=== PATIENT | female | born 1990 | race Caucasian/White ===

== ENCOUNTER 2016-08-10 08:20 | Emergency (ER) | payer BC, MEDICAID ==
[2010-08-08 05:17] VITALS: BMI 23.4
[2016-08-10 09:18] LABS: ALBUMIN 3.6 g/dL (3.4-5.0); ALKALINE PHOSPHATASE 57 U/L (46-116); ALT (SGPT) 21 U/L (10-68); BILIRUBIN - TOTAL 0.19 mg/dL (0.2-1.3); CALC OSMOLALITY 275 mosm/kg (275-300); CALCIUM 9.3 mg/dL (8.5-10.1); CARBON DIOXIDE 26.5 mmol/L (21.0-32.0); CHLORIDE - SERUM 102 mmol/L (98-107); CREATININE - SERUM 0.6 mg/dL (0.6-1.3); GLUCOSE 88 mg/dL (74-106); POTASSIUM - SERUM 3.4 mmol/L (3.5-5.1); PROTEIN - SERUM 7.4 g/dL (6.4-8.2); SODIUM 140 mmol/L (136-145); UREA NITROGEN 8 mg/dL (7-18); eGFR NON AFRICAN AMERICAN > 90 mL/min (90-120)
[2016-08-10 09:19] LABS: HCG SERUM POSITIVE (NEGATIVE)
[2016-08-10 09:22] LABS: BASOPHILS 0.2 % (0.0-2.0); EOSINOPHILS 0.5 % (0-7); HEMOGLOBIN 13.6 g/dL (12-16); IMMATURE GRANULOCYTES 0.2 % (0-5); LYMPHOCYTES 22.9 % (15-50); MCH 30.1 pg (26.0-34.0); MCV 88.5 fL (80.0-100.0); MEAN PLATELET VOLUME 10.5 fL (7.4-10.4); NEUTROPHILS 71.2 % (40-80); PLATELET COUNT 231 10x3/uL (130-400); RBC 4.52 10x6/uL (4.00-5.40); RDW 12.6 % (11.5-14.5); WBC 9.3 10x3/uL (4.8-10.8)
[2016-08-10 09:41] LABS: HCG - QUANTITATIVE (MATERNAL) 96181 mIU/mL
[2016-08-10 09:42] LABS: TROPONIN-I < 0.017 ng/mL (0.000-0.060)
== END 2016-08-10 11:30 | disposition home or self-care (01) ==
LOC: D.ER 08:20
PROVIDERS: Emergency Medicine
DX: R06.00 Dyspnea, unspecified (principal); N93.9 Abnormal uterine and vaginal bleeding, unspecified

== ENCOUNTER 2016-09-03 10:21 | Emergency (ER) | payer BC, MEDICAID ==
[2016-09-03 11:30] LABS: BASOPHILS 0.1 % (0-2); EOSINOPHILS 0.4 % (0-7); HEMATOCRIT 38.6 % (36.0-48.0); HEMOGLOBIN 13.2 g/dL (12-16); IMMATURE GRANULOCYTES 0.4 % (0-5); LYMPHOCYTES 22.1 % (15-50); MCH 30.5 pg (26.0-34.0); MCHC 34.2 g/dL (31.0-37.0); MCV 89.1 fL (80.0-100.0); MEAN PLATELET VOLUME 10.9 fL (7.4-10.4); MONOCYTES 4.5 % (2-11); NEUTROPHILS 72.5 % (40-80); PLATELET COUNT 248 10x3/uL (130-400); RBC 4.33 10x6/uL (4.00-5.40); RDW 12.6 % (11.5-14.5); WBC 11.2 10x3/uL (4.8-10.8)
[2016-09-03 11:30] LABS: UDS - AMPHET NEGATIVE QUAL (NEGATIVE); UDS - BARB NEGATIVE QUAL (NEGATIVE); UDS - BENZO NEGATIVE QUAL (NEGATIVE); UDS - COCAINE NEGATIVE QUAL (NEGATIVE); UDS - METH NEGATIVE QUAL (NEGATIVE); UDS - OPIATE NEGATIVE QUAL (NEGATIVE); UDS - PCP NEGATIVE QUAL (NEGATIVE); UDS - THC NEGATIVE QUAL (NEGATIVE)
[2016-09-03 11:32] LABS: APPEARANCE HAZY (CLEAR); BILIRUBIN NEGATIVE (NEGATIVE); COLOR STRAW (YELLOW); GLUCOSE NEGATIVE (NEGATIVE); KETONE NEGATIVE (NEGATIVE); LEUKOCYTE ESTERASE 1+ (NEGATIVE); NITRITE NEGATIVE (NEGATIVE); PROTEIN NEGATIVE (NEGATIVE); UROBILINOGEN NORMAL (NORMAL); WHITE CELLS - URINE 0-5 /hpf (0-5)
[2016-09-03 11:33] LABS: BACTERIA FEW /hpf (NONE SEEN); EPITHELIAL CELLS 0-5 /hpf (0-5); RED CELLS - URINE 0-5 /hpf (0-5)
[2016-09-03 11:34] LABS: AMORPHOUS SEDIMENT <1+ /lpf (NONE SEEN); MUCUS <1+ /lpf (NONE SEEN)
[2016-09-03 11:48] LABS: ALBUMIN 3.5 g/dL (3.4-5.0); ALKALINE PHOSPHATASE 60 U/L (46-116); ALT (SGPT) 22 U/L (10-68); BILIRUBIN - TOTAL 0.43 mg/dL (0.2-1.3); CALC OSMOLALITY 268 mosm/kg (275-300); CARBON DIOXIDE 26.5 mmol/L (21.0-32.0); CHLORIDE - SERUM 102 mmol/L (98-107); CREATININE - SERUM 0.5 mg/dL (0.6-1.3); GLUCOSE 80 mg/dL (74-106); POTASSIUM - SERUM 4.3 mmol/L (3.5-5.1); PROTEIN - SERUM 7.8 g/dL (6.4-8.2); SODIUM 136 mmol/L (136-145); UREA NITROGEN 7 mg/dL (7-18); eGFR NON AFRICAN AMERICAN > 90 mL/min (90-120)
[2016-09-03 12:09] LABS: HCG - QUANTITATIVE (MATERNAL) 136793 mIU/mL
[2016-09-03 12:10] LABS: TROPONIN-I < 0.017 ng/mL (0.000-0.060)
== END 2016-09-03 14:34 | disposition home or self-care (01) ==
LOC: D.ER 10:21
PROVIDERS: Emergency Medicine; Nurse Practitioner Family
DX: O23.42 Unspecified infection of urinary tract in pregnancy, second trimester (principal); Z3A.17 17 weeks gestation of pregnancy; R55 Syncope and collapse

== ENCOUNTER 2016-10-23 04:46 | Emergency (ER) | payer OTHER, BC, MEDICAID ==
[2010-08-08 05:17] VITALS: BMI 23.4
[2016-10-23] MEDS ORDERED: PRENATAL COMPLE1 TAB PO (06:02)
[2016-10-23] MEDS ORDERED: COLACE100 MG PO (06:03)
[2016-10-23] MEDS ORDERED: TYLENOL W/CODEI1 TAB PO (06:04)
[2016-10-23] MEDS ORDERED: PHENERGAN25 M1 PO (06:06)
== END 2016-10-23 05:22 | disposition home or self-care (01) ==
LOC: D.ER 04:46
DX: S39.012A Strain of muscle, fascia and tendon of lower back, initial encounter (principal); V29.9XXA Motorcycle rider (driver) (passenger) injured in unspecified traffic accident, initial encounter; R10.9 Unspecified abdominal pain

== ENCOUNTER → 2016-10-23 05:45 | Outpatient (CLI) | payer BC, MEDICAID ==
[2010-08-08 05:17] VITALS: BMI 23.4
[~2016-10-23 05:45] MED LIST: COLACE100 MG PO; PHENERGAN25 M1 PO; PRENATAL COMPLE1 TAB PO; TYLENOL W/CODEI1 TAB PO
== END | disposition home or self-care (01) ==
LOC: D.LDO 05:45
DX: Z34.82 Encounter for supervision of other normal pregnancy, second trimester (principal); Z3A.24 24 weeks gestation of pregnancy; V43.52XA Car driver injured in collision with other type car in traffic accident, initial encounter; Y92.410 Unspecified street and highway as the place of occurrence of the external cause

== ENCOUNTER → 2016-12-27 12:48 | Outpatient (CLI) | payer BC, MEDICAID ==
[2010-08-08 05:17] VITALS: BMI 23.4
[2016-12-27 13:20] LABS: APPEARANCE HAZY (CLEAR); BILIRUBIN NEGATIVE (NEGATIVE); COLOR YELLOW (YELLOW); GLUCOSE NEGATIVE (NEGATIVE); KETONE SMALL mg/dL (NEGATIVE); LEUKOCYTE ESTERASE 1+ (NEGATIVE); NITRITE NEGATIVE (NEGATIVE); PH 6.5 (5.0-6.0); PROTEIN NEGATIVE (NEGATIVE); SPECIFIC GRAVITY 1.015 (1.005-1.020); UROBILINOGEN NORMAL (NORMAL)
[2016-12-27 13:27] LABS: BACTERIA MODERATE /hpf (NONE SEEN); RED CELLS - URINE OCC /hpf (0-5)
== END | disposition home or self-care (01) ==
LOC: D.LDO 12:48
PROVIDERS: Obstetrics & Gynecology
DX: Z34.83 Encounter for supervision of other normal pregnancy, third trimester (principal); Z3A.33 33 weeks gestation of pregnancy; M54.9 Dorsalgia, unspecified

== ENCOUNTER → 2017-01-04 11:23 | Outpatient (CLI) | payer BC, MEDICAID ==
[2010-08-08 05:17] VITALS: BMI 23.4
== END | disposition home or self-care (01) ==
LOC: D.US 11:00
DX: N13.30 Unspecified hydronephrosis (principal); M54.9 Dorsalgia, unspecified; R10.9 Unspecified abdominal pain

== ENCOUNTER 2017-02-03 05:07 | Inpatient (IN) | payer BC, MEDICAID ==
[2017-02-03] MEDS ORDERED: PROTONIX40 MG PO (05:29)
[2017-02-03 05:39] VITALS: BP 141/87; BMI 27.7
[2017-02-03 06:50] LABS: HEMATOCRIT 38.7 % (36.0-48.0); MCH 29.7 pg (26.0-34.0); MCHC 33.6 g/dL (31.0-37.0); MCV 88.4 fL (80.0-100.0); MEAN PLATELET VOLUME 11.7 fL (7.4-10.4); RBC 4.38 10x6/uL (4.00-5.40); RDW 13.8 % (11.5-14.5); WBC 8.7 10x3/uL (4.8-10.8)
[2017-02-03 20:10] VITALS: BP 127/66
--- NOTE | 2017-02-03 21:00 | NUR ---
ROUNDS MADE. PT LYING AWAKE IN BED W/INFANT UP IN ARMS. PAIN AND NEEDS ASSESSED. PT DENIES NEEDS AT PRESENT. REPORTS PAIN "IS FINE".
--- NOTE | 2017-02-03 22:00 | NUR ---
ROUNDS MADE. PT CURRENTLY HOLDING INFANT. REPORTS SHE CHANGED A DIAPER AND IS GOING TO ATTEMPT TO NURSE SINCE HE IS AWAKE AT THIS TIME. NO NEEDS VOICED. PT REQUEST BOTH MOTRIN AND NORCO WHEN SHE MAY HAVE IT AGAIN.
--- NOTE | 2017-02-03 22:30 | NUR ---
THIS RN TO BEDSIDE W/MOTRIN 600MG AND NORCO 5/325MG ONE TAB PER PT REQUEST. PAIN ASSESSED. PT REPORTS PAIN 5/10. DESCRIBES IT ABD AND LOWER BACK CRAMPING. FRESH ICE WATER SERVED IN [facility]. Eugene ANDINORN TO PT'S ROOM AT THIS TIME TO ASSIST PT W/GETTING LATCHED AND NURSING.
--- NOTE | 2017-02-03 23:15 | NUR ---
THIS RN TO BEDSIDE FOR PAIN REASSESSMENT. PT REPORTS PAIN IS 2/10 NOW. NO FURTHER PAIN INTERVENTIONS REQUESTED. PT CURRENTLY NURSING . NO FURTHER NEEDS VOICED AT THIS TIME.
--- NOTE | 2017-02-04 | NUR ---
ROUNDS MADE. PT LYING IN BED AWAKE W/LIGHTS TURNED DOWN. PAIN AND NEEDS ASSESSED. PT DENIES PAIN OR NEEDS. INFANT IN CRIB AT BEDSIDE. AWAKE. NO RESP DISTRESS NOTED.
--- NOTE | 2017-02-04 01:12 | NUR ---
REC'D PT AA&O X 4 LYING IN BED W/INFANT UP IN ARMS. PAIN AND NEEDS ASSESSED. PT CURRENTLY DENIES NEEDS. REPORTS PAIN IS BETTER SINCE PAIN MED WAS GIVEN BY AM SHIFT. INFANT PASSED TO FOB SO SHIFT ASSESSMENT MAY BE COMPLETED. BREATH SOUNDS CL/=, ABD SOFT, NON DISTENDED. FUNDUS FIRM,U/U W/SLIGHT SHIFT TO RT. PT REPORTS SHE DOES FEEL THE URGE TO VOID AND PLANS TO AFTER ASSESSMENT COMPLETED. PERINEUM W/MILD SWELLING NOTED. SMALL LOCHIA NOTED. NO EDEMA NOTED NOTED TO LE'S. PEDAL PULSES PRESENT X 2. V/S OBTAINED. SEE FLOWSHEET. PT UP TO VOID. VOIDS 600ML. RETURNS TO BED. FUNDUS FIRM,U/1, MIDLINE. BED LOW, SIDE RAILS UP X 2. CALL LIGHT AT PT'S SIDE.
--- NOTE | 2017-02-04 01:54 | NUR ---
ROUNDS MADE. PT SITTING UP IN BED W/INFANT UP IN ARMS BEGINNING TO NURSE. PT DENIES PAIN OR NEEDS AT PRESENT.
--- NOTE | 2017-02-04 02:41 | NUR ---
PT RINGS CALL LIGHT REQUEST PAIN MEDICATION FOR PAIN. NORCO 5/325MG ONE TAB PO GIVEN. SEE EMAR. PT CURRENTLY ATTEMPTING TO GET TO NURSE. PT ASSISTED W/GETTING AWAKE. PLACED IN CRIB AT BEDSIDE. W/D DIAPER CHANGED. INFANT STIMULATED UNTIL AWAKE AND ALERT. PT ASSISTED W/GETTING INFANT TO LATCH TO BREAST SHIELD. INFANT WILL LATCH FOR A COUPLE OF MINS AND W/STIMULATION W/SUCK A COUPLE OF TIMES. DOES THIS X 3 MINS AND THEM FALLS TO SLEEP AND LOOSES LATCH. UNINTERESTED IN NURSERING AT THIS TIME. PT INFORMED THIS RN WILL RETURN TO ROOM AT 0400 TO ATTEMPT TO GET INFANT TO LATCH AND NURSE. PT IS AGREEABLE. DENIES NEEDS AT PRESENT.
--- NOTE | 2017-02-04 03:15 | NUR ---
ALL ATTEMPTS TO GET TO STAY AWAKE AND LATCH. UNSUCCESSFUL. MOM QUESTIONS IF SHE NEED TO GIVE HIM A BOTTLE.MOM REASSURED. THIS RN TO RETURN TO PT'S ROOM AT 0400.
--- NOTE | 2017-02-04 04:00 | NUR ---
THIS RN TO PT'S ROOM. ATTEMPTS MADE TO GET TO LATCH AND NURSE. ALL ATTEMPTS UNSUCCESSFUL. PT ASKS IF SHE SHOULD JUST GIVE HIM A BOTTLE. PT REASSURED. ENCOURAGED TO PUMP FIRST TO SEE IF SHE HAS BREAST MILK TO GIVE HIM BEFORE GIVING A BOTTLE. PT IS AGREEABLE. PUMP PROVIDED AND SET UP. PT TO PUMP X 30MINS. TO NBN AT THIS TIME.
--- NOTE | 2017-02-04 04:45 | NUR ---
THIS RN RETURNS TO ROOM. NO BREAST MILK PUMPED AT THIS TIME. PT QUESTIONED IF SHE WOULD LIKE THIS RN TO FEED INFANT A BOTTLE AT THIS TIME AND ATTEMPT NURSING AT NEXT FEEDING. PT IS AGREEABLE. PT C/O ABD CRAMPING. MOTRIN OFFERED. PT ACCEPTS. SEE EMAR. WARM BLANKET PROVIDED FOR PT'S ABD. INFANT TO REMAIN IN NBN AT THIS TIME TO ALLOW PT TO REST. NO FURTHER NEEDS VOICED AT THIS TIME.
--- NOTE | 2017-02-04 05:30 | NUR ---
ROUNDS MADE. PT LYING TO RT SIDE. LIFTS HEAD UP AND SPEAKS TO THIS RN UPON ENTERING THE ROOM. PAIN REASSESSED. PT REPORTS FEELING BETTER. RATED 3/10. NO NEEDS VOICED AT THIS TIME.
--- NOTE | 2017-02-04 06:50 | NUR ---
ROUNDS MADE. PT LYING AWAKE IN BED. DENIES PAIN OR NEEDS. PP TREAT BOX PROVIDED.
[2017-02-04 07:24] LABS: RAPID PLASMA REAGIN Non Reactive (Non Reactive)
[2017-02-04 07:30] VITALS: BP 128/81
--- NOTE | 2017-02-04 07:30 | NUR ---
AM ASSESSMENT COMPLETED, PT DENIES HEAVY BLEEDING OR PASSING CLOTS. PT STATES SHE IS HAVING QUITE A BIT OF CRAMPING, STATES SHE HAS ALWAYS DEALT WITH REALLY BAD CRAMPS FOR YEARS NOW. SEE ASSESSMENT FLOWSHEET. PT REQUESTS PAIN MEDICATION FOR CRAMPING. SEE EMAR FOR ALL MEDS ADM BY ME. FRESH ICE WATER SERVED. PT IS SITTING UP IN THE BED, WITH BREAKFAST TRAY AT BEDSIDE. SR UP X2, CALL LIGHT AND PHONE WITHIN REACH.
[2017-02-04 07:31] LABS: BASOPHILS 0.2 % (0-2); EOSINOPHILS 0.8 % (0-7); HEMATOCRIT 36.2 % (36.0-48.0); HEMOGLOBIN 12.1 g/dL (12-16); IMMATURE GRANULOCYTES 0.6 % (0-5); LYMPHOCYTES 20.2 % (15-50); MCH 29.5 pg (26.0-34.0); MCHC 33.4 g/dL (31.0-37.0); MCV 88.3 fL (80.0-100.0); MEAN PLATELET VOLUME 11.1 fL (7.4-10.4); MONOCYTES 6.3 % (2-11); NEUTROPHILS 71.9 % (40-80); PLATELET COUNT 176 10x3/uL (130-400)
--- NOTE | 2017-02-04 08:30 | NUR ---
PAIN REASSESSMENT. PT STATES THE PAIN MEDICATION "HAS HELPED QUITE A BIT." DENIES OTHER NEEDS AT THIS TIME. SR UP X2, CALL LIGHT AND PHONE WITHIN REACH.
--- NOTE | 2017-02-04 10:50 | NUR ---
PT SITTING UP IN THE BED, REQUESTS PAIN MEDICATION, SEE EMAR FOR MED ADM. PT DENIES NEEDS AT THIS TIME. SR UP X2, CALL LIGHT AND PHONE WITHIN REACH. SIG OTHER IN ROOM AT THIS TIME.
[2017-02-04 11:00] VITALS: BP 131/82
--- NOTE | 2017-02-04 11:00 | NUR ---
CLEAN LINENS PROVIDED FOR SHOWER. PT DENIES OTHER NEEDS AT THIS TIME. SIG OTHER IN ROOM HOLDING . ICE WATER SERVED TO SIG OTHER AT PT'S REQUEST. DENIES OTHER NEEDS.
--- NOTE | 2017-02-04 11:45 | NUR ---
LUNCH TRAY SERVED BY DIETARY, PT DENIES NEEDS AT THIS TIME.
--- NOTE | 2017-02-04 12:15 | NUR ---
PT SITTING UP IN THE BED, EATING LUNCH. PT REQUESTS PAIN MEDICATION. SEE EMAR. SR UPX2, CALL LIGHT AND PHONE WITHIN REACH. PT DENIES OTHER NEEDS AT THIS TIME.
--- NOTE | 2017-02-04 17:25 | NUR ---
PT STATES "I THINK THE CRAMPING IS GETTING WORSE". RATING PAIN WITH ABD CRAMPS 7/10, REQEUSTS PAIN MEDICATION. IBUPROFEN 600 MG AND NORCO 5 MG GIVEN WITH FRESH GLASS OF ICE WATER. FUNDUS FIRM, U/1, SMALL RUBRA LOCHIA, PT DENIES HEAVY BLEEDING OR PASSING CLOTS. FAMILY AT BEDSIDE. SR UP X 2, CALL LIGHT AND PHONE WITHIN REACH.
--- NOTE | 2017-02-04 18:00 | NUR ---
FRESH ICE WATER SERVED TO PT. PT STATES SHE HAS BEEN AMBULATORY IN THE ROOM. ENCOURAGED PT TO WALK IN HALLWAY, TO NS, AND BACK A COUPLE OF TIMES THIS EVENING. PT AGREES. DENIES OTHER NEEDS. PT HAS SUPPER TRAY ON BEDSIDE TABLE. SR UP X2, CALL LIGHT AND PHONE WITHIN REACH.
--- NOTE | 2017-02-04 19:30 | NUR ---
REC'D PT AA&O UP, DRESSED IN STREET CLOTHES AMBULATING IN ROOM. PT REPORTS SHE AND HER SPOUSE ARE GETTING READY TO AMBULATE IN HALLS. PAIN AND NEEDS ASSESSED AT THIS TIME. PT REPORTS PAIN /. DENIES NEEDS. ASSESSMENT TO BE COMPLETED WHENPT RETURNS TO ROOM.
--- NOTE | 2017-02-04 20:40 | NUR ---
THIS RN RETURNS TO BEDSIDE. PT SITTING UP IN BED WATCHING TV. SHIFT ASSESSMENT COMPLETED. BREATH SOUNDS CL/=, ABD SOFT,NON DISTENDED.FUNDUS FIRM,U/2,MIDLINE. PT REPORTS LIGHT RUBRA LOCHIA TODAY. NO IV ACCESS. NO EDEMA NOTED TO LOWER EXTREMITIES. PEDAL PULSES PRESENT X 2. CONTINUES TO RATE PAIN 2/10. DENIES NEEDS AT THIS TIME. IN CRIB AT BEDSIDE. SPOUSE ON SOFA.
[2017-02-04 20:43] VITALS: BP 131/77
--- NOTE | 2017-02-04 21:47 | NUR ---
pt. c/o abd. cramping that she rates as a 4 of 10 on pain scale. Pt. currently pumping breast. States cramping is more severe with pumping. Explained to pt. function cramping serves ie: keeping uterus contracted thus decreasing bleeding. States understanding to all information.
--- NOTE | 2017-02-04 22:20 | NUR ---
PT. WALKING ABOUT IN ROOM. REPORTS PAIN A 3 OF 10 AND STATES "IT HAS GOTTEN BETTER". DENIES ANY NEEDS AT THIS TIME.
--- NOTE | 2017-02-05 | NUR ---
PT RINGS CALL LIGHT REQUESTING PAIN MEDICATION. THIS RN TO BEDSIDE W/MOTRIN 600MG PO. ONE TAB GIVEN FOR PT C/O ABD CRAMPING THAT SHE RATES 3/10. PT DENIES FURTHER NEEDS. REPORTS SHE IS GETTING READY TO NURSE .
--- NOTE | 2017-02-05 01:00 | NUR ---
PT RINGS CALL LIGHT. THIS RN TO BEDSIDE. PT REQUEST BE RETURNED TO NBN PER NBN NURSE REQUEST FOR ORDERED TESTING. WHILE AT BEDSIDE, PT'S PAIN AND NEEDS ASSESSED. PT DENIES NEEDS. REPORTS PAIN 2/10. NO FURTHER PAIN INTERVENTIONS REQUESTED AT THIS TIME.
--- NOTE | 2017-02-05 03:05 | NUR ---
ROUNDS MADE. PT CURRENTLY SITTING UP IN BED NURSING . PAIN AND NEEDS ASSESSED. PT REQUESTING NORCO FOR C/O ABD CRAMPING. NORCO 5/325MG ONE TAB PO GIVEN. FRESH ICE WATER IN [facility] AND LARGE CUP OFF ICE SERVED PER PT REQUEST.
--- NOTE | 2017-02-05 04:04 | NUR ---
LYING ON LT SIDE . RESPIRAITONS REGULAR.
[2017-02-05 07:38] VITALS: BP 129/81
--- NOTE | 2017-02-05 07:38 | NUR ---
RECEIVED PT SITTING UP IN BED. CONSUMING REG DIET. CONCEPCIÓN WELL. VSS. HRRR WITHOUT AUDIBLE MURMUR. BBS CLEAR. BS X 4. ABDOMEN SOFT/NON-DISTENDED. FUNDUS FIRM AT U/3. RUBRA LOCHIA SCANT AMT. NO HEAVY BLEEDING PER PT STATES. NEG HOMANS' SIGN. PPP. NO EDEMA NOTED TO BLE.
--- NOTE | 2017-02-05 08:00 | NUR ---
DR SIMON VISITS WITH PT. NEW ORDER RECEIVED TO DC HOME.
[2017-02-05] MEDS ORDERED: MOTRIN600 MG PO (08:23)
[2017-02-05] MEDS ORDERED: HYDROCODON-ACE1 EAC7 PO (08:23)
--- NOTE | 2017-02-05 08:30 | NUR ---
PT AMBULATORY IN ROOM. PREPARING FOR DISCHARGE. DENIES PAIN. INFORMATION SHEET GIVEN TO PT ON TDAP VACCINE. STATES DESIRE FOR IMMUNIZATION.
--- NOTE | 2017-02-05 10:01 | NUR ---
Bria Paiz 02/05/17 LE@ 8:10 S: Patient states, " I feel good, is going good." O: Patient standing up in room, FOB on sofa in room, infant in nursery. Congratulated on delivery ask if any questions or concerns with ? Patient states," No, I have been using a nipple shield, I've been latching infant to the breast then giving formula after. I was told to pump 20 minutes before feeding, latch infant, give formula, and then pump again. Asked why you are pumping? Patient states, "With my other baby, who is now 6, my supply was low. I wanted to make sure my supply doesn't go low." I understand your concern, especially low milk supply with your other kid. Your body is capable of making exactly what baby needs. Supply and demand what baby takes out your body is capable of making more of. It's important to put infant to the breast for every feeding. Stimulating is important with ; your body is capable of making exactly what infant needs. I don't recommend pumping, instead place infant to the breast for every feeding. does take time and patience in the beginning, just focus on that feeding at that moment. Explained feeding cues, should be fed when showing feeding cues. It is normal for a breastfed to feed every 2-3 hours in the day and 3-4 hours at night, every baby is different. How long infant latches can vary per infant. Explained breastmilk composition, supply and demand what baby takes out, our bodies will make more of. Explained position, what to expect the first week, how to verify infant is latched correctly to the breast, and benefits of skin to skin. Showed how to correctly apply nipple shield for feeding, had patient apply nipple shield, verified patient is aware how to use correctly. Patient does have flat nipples. I will come back in room for next feeding to observe feeding. A: Client expresses concern for pumping before feeding. P: Continue to latch infant for every feeding. Tylor Villegas, CLC
--- NOTE | 2017-02-05 11:10 | NUR ---
DISCHARGE INSTRUCTIONS GIVEN TO PT. PT VERBALIZES UNDERSTANDING OF ALL INSTRUCTIONS. COPIES GIVEN TO PT. PT GIVEN RX FOR NORCO 5/325 AND MOTRIN 600. PT PREPARES FOR DISCHARGE.
--- NOTE | 2017-02-05 11:14 | NUR ---
Bria Paiz 02/05/17 LE@ 9:10 S: Patient called nursery and states, "I'm about to feed , can you ask the LC to come into my room." O: Patient in bed attempting to feed infant in cradle position, sleeping at the breast. Had patient stimulate and place back to the breast for feeding. Showed patient how to apply nipple shield, infant was latched on the left breast in cradle position, round cheeks, mouth 140 degrees, sucking in a rocking motion, observed infant removing milk from the breast. Mother and appear content with feeding. Asked patient if she had any questions or concerns, she replies no. Encouraged to continue to feed on demand, verify is latched correctly for every feeding, place infant to the breast for every feeding, only offer supplement if needed. Please reach out for help as needed with , we are happy to help. Asked if any questions or concerns, patient declined. A: LC in room to observe feeding. P: Continue to latch to the breast for every feeding. Tylor Villegas,CLC
--- NOTE | 2017-02-05 12:00 | NUR ---
PT READY FOR DISCHARGE. DISCHARGED WITH VIA WHEELCHAIR PER AUXILIARY STAFF TO PRIVATE VEHICLE.
== END 2017-02-05 12:00 | disposition home or self-care (01) | DRG 775 ==
LOC: D.LD
PROVIDERS: ADMIT Obstetrics & Gynecology
PROC: 10E0XZZ Delivery of Products of Conception, External Approach (ICD-10-PCS; principal; 2017-02-03)
PROC: 10907ZC Drainage of Amniotic Fluid, Therapeutic from Products of Conception, Via Natural or Artificial Opening (ICD-10-PCS; 2017-02-03)
PROC: 3E033VJ Introduction of Other Hormone into Peripheral Vein, Percutaneous Approach (ICD-10-PCS; 2017-02-03)
PROC: 0HQ9XZZ Repair Perineum Skin, External Approach (ICD-10-PCS; 2017-02-03)
DX: O36.0930 Maternal care for other rhesus isoimmunization, third trimester, not applicable or unspecified (principal); N39.0 Urinary tract infection, site not specified; Z37.0 Single live birth; Z3A.39 39 weeks gestation of pregnancy

== ENCOUNTER 2019-02-06 00:39 | Emergency (ER) | payer BC ==
[~2019-02-06] VITALS: Ht 152.4 cm; Wt 85.0 kg
[~2019-02-06 00:39] MED LIST changes: +HYDROCODON-ACE1 EAC7 PO; +MOTRIN600 MG PO; +PROTONIX40 MG PO
[2019-02-06 00:46] VITALS: Ht 152.4 cm; Wt 85.0 kg
[2019-02-06] MEDS ORDERED: AVAPRO75 MG PO (00:47)
[2019-02-06 01:03] LABS: BASOPHILS 0.2 % (0-2); HEMATOCRIT 45.1 % (36.0-48.0); HEMOGLOBIN 15.2 g/dL (12-16); IMMATURE GRANULOCYTES 0.3 % (0-5); LYMPHOCYTES 25.7 % (15-50); MCH 30.5 pg (26.0-34.0); MCHC 33.7 g/dL (31.0-37.0); MCV 90.6 fL (80.0-100.0); MEAN PLATELET VOLUME 9.9 fL (7.4-10.4); MONOCYTES 8.4 % (2-11); NEUTROPHILS 64.4 % (40-80); RBC 4.98 10x6/uL (4.00-5.40); RDW 12.4 % (11.5-14.5); WBC 10.6 10x3/uL (4.8-10.8)
[2019-02-06 01:10] LABS: PLATELET COUNT 299 10x3/uL (130-400)
[2019-02-06 01:14] LABS: INR 1.06 (0.85-1.17); PROTIME 13.3 SECONDS (11.6-15.0)
[2019-02-06 01:15] LABS: APTT 29.9 SECONDS (22.8-39.4)
[2019-02-06 01:19] LABS: ALBUMIN 4.4 g/dL (3.4-5.0); ALKALINE PHOSPHATASE 71 U/L (46-116); ALT (SGPT) 27 U/L (10-68); BILIRUBIN - TOTAL 0.43 mg/dL (0.2-1.3); CALC OSMOLALITY 276 mosm/kg (275-300); CALCIUM 9.1 mg/dL (8.5-10.1); CHLORIDE - SERUM 101 mmol/L (98-107); CREATININE - SERUM 0.7 mg/dL (0.6-1.3); GLUCOSE 103 mg/dL (74-106); POTASSIUM - SERUM 3.5 mmol/L (3.5-5.1); PROTEIN - SERUM 8.1 g/dL (6.4-8.2); SODIUM 139 mmol/L (136-145); UREA NITROGEN 9 mg/dL (7-18); eGFR NON AFRICAN AMERICAN > 90 mL/min (90-120)
[2019-02-06 01:25] LABS: HCG SERUM NEGATIVE (NEGATIVE)
[2019-02-06] MEDS ORDERED: LOMOTIL 2.5-0.1 EAC1 PO (02:26)
[2019-02-06] MEDS ORDERED: ZOFRAN ODT4 MG/UDTAB PO (02:26)
[2019-02-06 02:46] VITALS: BP 120/69
[2019-02-06] MEDS ORDERED: AVAPRO150 MG PO (12:18)
[2019-02-06] MEDS ORDERED: ERRIN0.35 MG PO (12:20)
== END 2019-02-06 02:46 | disposition home or self-care (01) ==
LOC: D.ER 00:39
PROVIDERS: Family Medicine
DX: A08.4 Viral intestinal infection, unspecified (principal); K92.1 Melena

== ENCOUNTER 2019-02-06 11:56 | Inpatient (IN) | payer BC ==
[~2019-02-06] VITALS: Ht 152.4 cm; Wt 63.5 kg
[~2019-02-06 11:56] MED LIST changes: +AVAPRO75 MG PO; +LOMOTIL 2.5-0.1 EAC1 PO; +ZOFRAN ODT4 MG/UDTAB PO
--- NOTE | 2019-02-06 12:13 | NUR ---
PT ARRIVED TO UNIT VIA WC ACCOMPANIED BY SPOUSE. ALERT AND ORIENTED. ON ROOM AIR. BED LOW. CL IN REACH.
[2019-02-06] MEDS ORDERED: AVAPRO150 MG PO (12:18)
[2019-02-06] MEDS ORDERED: ERRIN0.35 MG PO (12:20)
--- NOTE | 2019-02-06 12:57 | NUR ---
LEFT FA 20G IV INSERTED ON X1 ATTEMPT.
[2019-02-06 13:18] VITALS: BP 112/65; BMI 27.3
--- NOTE | 2019-02-06 14:40 | NUR ---
PT'S SPOUSE LEFT AND TOOK PURSE AND WALLET WITH HIM.
[2019-02-06 16:04] LABS: APPEARANCE CLEAR (CLEAR); BILIRUBIN NEGATIVE (NEGATIVE); COLOR YELLOW (YELLOW); GLUCOSE NEGATIVE (NEGATIVE); KETONE NEGATIVE (NEGATIVE); NITRITE NEGATIVE (NEGATIVE); PROTEIN NEGATIVE (NEGATIVE); UROBILINOGEN NORMAL (NORMAL)
[2019-02-06 18:01] VITALS: BP 115/70
--- NOTE | 2019-02-06 18:05 | NUR ---
REFUSED SCD'S. PT STATES SHE HAS TO KEEP GETTING UP TO USE THE BATHROOM.
--- NOTE | 2019-02-06 18:09 | NUR ---
PT STATES SHE WANTS TO TRY TYLENOL FOR PAIN BEFORE THE TRAMADOL OR MORPHINE. PT STATES HER PAIN LEVEL IS A 3 OUT OF 10 AND IT'S ABDOMINAL CRAMPING.
[2019-02-06 19:08] VITALS: BP 98/55
--- NOTE | 2019-02-06 19:09 | NUR ---
PATIENT RESTING IN BED AND DENIES NEEDS AT THIS TIME. NO S/S OF DISTRESS. VSS. BED IN LOWEST POSITION AND CALL LIGHT WITHIN REACH. ENCOURAGED THE PATIENT TO CALL IF SHE HAS NEEDS. WILL CONTINUE TO MONITOR.
[2019-02-06 23:34] VITALS: BP 96/41
[2019-02-07 04:11] VITALS: BP 106/64
[2019-02-07 07:21] LABS: BASOPHILS 0.3 % (0-2); EOSINOPHILS 2.1 % (0-7); HEMATOCRIT 39.9 % (36.0-48.0); HEMOGLOBIN 13.1 g/dL (12-16); IMMATURE GRANULOCYTES 0.2 % (0-5); LYMPHOCYTES 39.3 % (15-50); MCHC 32.8 g/dL (31.0-37.0); MCV 91.5 fL (80.0-100.0); MEAN PLATELET VOLUME 10.1 fL (7.4-10.4); MONOCYTES 6.4 % (2-11); NEUTROPHILS 51.7 % (40-80); PLATELET COUNT 279 10x3/uL (130-400); RBC 4.36 10x6/uL (4.00-5.40); RDW 12.6 % (11.5-14.5)
[2019-02-07 07:27] LABS: WBC 6.3 10x3/uL (4.8-10.8)
[2019-02-07 07:39] LABS: CALC OSMOLALITY 276 mosm/kg (275-300); CALCIUM 8.1 mg/dL (8.5-10.1); CHLORIDE - SERUM 107 mmol/L (98-107); CREATININE - SERUM 0.8 mg/dL (0.6-1.3); GLUCOSE 102 mg/dL (74-106); POTASSIUM - SERUM 3.7 mmol/L (3.5-5.1); SODIUM 140 mmol/L (136-145); eGFR NON AFRICAN AMERICAN 89 mL/min (90-120)
[2019-02-07 07:41] LABS: UREA NITROGEN 6 mg/dL (7-18)
[2019-02-07 09:09] VITALS: BP 101/65
--- NOTE | 2019-02-07 09:26 | NUR ---
PT ALERT X 4. BREATH SOUNDS CLEAR BILAT. REPORTING NAUSEA BUT IMPROVED. PT REPORTING PAIN OF 1/10 TO ABDOMEN, WILL MONITOR. IV TO LEFT AC, PATENT, DRESSING CDI. BED LOW, CALL LIGHT IN REACH. NO OTHER NEEDS AT THIS TIME.
[2019-02-07 12:01] VITALS: Ht 152.4 cm; Wt 63.5 kg
--- NOTE | 2019-02-07 12:45 | MORECARE ---
CASE MANAGEMENT DISCHARGE SUMMARY PATIENT: JAX PAIZ UNIT: [id number] ADM DATE: 02/06/19 AGE: 28 : [birth year] SEX: F ROOM/BED: D.1203 AUTHOR: VICKI LE PHYSICIAN: REFERRING PHYSICIAN: HAZEL BASURTO MD DATE OF SERVICE: 02/07/19 Discharge Plan Patient Name: JAX PAIZ Facility: [facility]:[place] : 1990 Planned Disposition: Home Anticipated Discharge Date: 02/08/19 Discharge Date: Expected LOS: 2 Initial Reviewer: [email or web address] Initial Review Date: 02/06/2019 Generated: 02/07/19 1:45 pm Comments DCP- Discharge Planning Updated by [email or web address]: Salome Wood on 02/07/19 11:[address] DC PLAN: Return home independently with her . ANTICIPATED DC NEEDS: Denied known dc needs. CM met with patient to complete initial dc planning assessment. CM educated patient on the CM role and verbal consent given by patient to complete assessment. CM verified patient's address, phone number, and emergency contact phone numbers. Patient lives at home with her and reports she is independent with her ADL's. At discharge patient plans to return home and feels this is a safe discharge. CM discussed availability of home health, rehab services, and medical equipment. Patient denied known discharge needs at this time. Patient reports her will transport him/her home at time of discharge. CM will continue to follow and will assist as needed with dc plans/needs. Salome Wood RN, [facility] DCPIA - Discharge Planning Initial Assessment Updated by [email or web address]: Salome Wood on 02/07/19 12:38 pm * Is the patient Alert and Oriented? Yes * PCP Dr. Basurto * Pharmacy [facility] * Preadmission Environment Home with Family * ADLs Independent * Equipment None * List name and contact numbers for known caregivers / representatives who currently or will assist patient after discharge: Nicholas Paiz - spouse - [phone] * Verbal permission to speak to the caregivers and representatives has been obtained from the patient. Yes * Community resources currently utilized None * Additional services required to return to the preadmission environment? No * Can the patient safely return to the preadmission environment? Yes * Has this patient been hospitalized within the prior 30 days at any hospital? No Patient Name: JAX PAIZ Page [phone] at 1245 All edits/amendments must be made on the electronic document DICTATION DATE: 02/07/191244 CLIENT MANAGER: ESTER 02/07/19 124 RPT#: [id number] DC DATE: STATUS: ADM IN [facility] [address] [place] [address] END OF REPORT
--- NOTE | 2019-02-07 13:42 | MORECARE ---
CASE MANAGEMENT DISCHARGE SUMMARY PATIENT: JAX PAIZ UNIT: [id number] ADM DATE: 02/06/19 AGE: 28 : 86 SEX: F ROOM/BED: D.1203 AUTHOR: VICKI LE PHYSICIAN: REFERRING PHYSICIAN: HAZEL BASURTO MD DATE OF SERVICE: 02/07/19 Discharge Plan Patient Name: JAX PAIZ Facility: [facility]:[place] : 1990 Planned Disposition: Home Anticipated Discharge Date: 02/08/19 Discharge Date: Expected LOS: 2 Initial Reviewer: [email or web address] Initial Review Date: 02/06/2019 Generated: 02/07/19 2:42 pm Comments DCP- Discharge Planning Updated by [email or web address]: Salome Wood on 02/07/19 11:[address] DC PLAN: Return home independently with her . ANTICIPATED DC NEEDS: Denied known dc needs. CM met with patient to complete initial dc planning assessment. CM educated patient on the CM role and verbal consent given by patient to complete assessment. CM verified patient's address, phone number, and emergency contact phone numbers. Patient lives at home with her and reports she is independent with her ADL's. At discharge patient plans to return home and feels this is a safe discharge. CM discussed availability of home health, rehab services, and medical equipment. Patient denied known discharge needs at this time. Patient reports her will transport him/her home at time of discharge. CM will continue to follow and will assist as needed with dc plans/needs. Salome Wood RN, [facility] DCPIA - Discharge Planning Initial Assessment Updated by [email or web address]: Salome Wood on 02/07/19 12:38 pm * Is the patient Alert and Oriented? Yes * PCP Dr. Basurto * Pharmacy [facility] * Preadmission Environment Home with Family * ADLs Independent * Equipment None * List name and contact numbers for known caregivers / representatives who currently or will assist patient after discharge: Nicholas Paiz - spouse - [phone] * Verbal permission to speak to the caregivers and representatives has been obtained from the patient. Yes * Community resources currently utilized None * Additional services required to return to the preadmission environment? No * Can the patient safely return to the preadmission environment? Yes * Has this patient been hospitalized within the prior 30 days at any hospital? No External Providers External Provider: OTHER-OTHER Next Contact Date: Service Request Date: Service Type: Resolution: Reviewer: Comments: Last DP export: 02/07/19 11:46 a Patient Name: JAX PAIZ Page [phone] at 1342 All edits/amendments must be made on the electronic document DICTATION DATE: 02/07/19 134 ANALYST SALES: ESTER 02/07/19 1342 RPT#: [id number] DC DATE: STATUS: ADM IN [facility] [address] [place] [address] END OF REPORT
[2019-02-07 17:15] VITALS: BP 106/69
--- NOTE | 2019-02-07 19:49 | NUR ---
REPORT RECIEVED AND ROUNDING COMPLETE. PATIENT IN BED IN HIGH FOWLERS POSITION. PATIENT HAS A LEFT FOREARM PIV THAT IS PATENT AND RUNNING FLUIDS AT THIS TIME. PIV IS SHOWING NO S/SX OF INFILTRATION OR INFECTION AT THIS TIME. PATIENT HAS FAMILY AT BEDSIDE AT THIS TIME. PATIENT IS SHOWING NO SIGNS OF DISTRESS AT THIS TIME. PATIENT STATES SHE HAS NO NEEDS. CALL LIGHT WITHIN REACH AND BED IN LOWEST LOCKED POSITION.
[2019-02-07 21:26] VITALS: BP 96/52
--- NOTE | 2019-02-07 22:09 | NUR ---
I have reviewed this patient and I concur with the Shift Assessment completed by the Licensed Practical Nurse today this shift.
[2019-02-08] VITALS (9 sets, daily range): BP systolic 89–120; BP diastolic 40–82
--- NOTE | 2019-02-08 05:00 | NUR ---
PAGED ON CALLED FOR PATIENT'S B/P.
--- NOTE | 2019-02-08 05:00 | NUR ---
DR. BUCHANAN CALLED ME BACK AND WE DISCUSSED PATIENT. STATED TO SEND PATIENT TO THE UNIT BECAUSE OF HER LOW BLOOD PRESSURE AND HAVE THEM GIVE HIM A CALL WHEN SHE GETS THERE TO DISCUSS ORDERS FOR HER BLOOD PRESSURE. CALL [facility] [employer] TO INFORM WHAT DR. BUCHANAN SAID. ANABELLA WILL CALL BACK WITH A BED.
[2019-02-08 05:33] LABS: BASOPHILS 0.3 % (0-2); EOSINOPHILS 1.5 % (0-7); HEMOGLOBIN 12.6 g/dL (12-16); IMMATURE GRANULOCYTES 0.2 % (0-5); LYMPHOCYTES 38.5 % (15-50); MCH 30.3 pg (26.0-34.0); MCHC 33.2 g/dL (31.0-37.0); MCV 91.3 fL (80.0-100.0); MEAN PLATELET VOLUME 9.8 fL (7.4-10.4); MONOCYTES 6.3 % (2-11); NEUTROPHILS 53.2 % (40-80); PLATELET COUNT 271 10x3/uL (130-400); RBC 4.16 10x6/uL (4.00-5.40); RDW 12.6 % (11.5-14.5); WBC 6.6 10x3/uL (4.8-10.8)
[2019-02-08 05:41] LABS: CALC OSMOLALITY 281 mosm/kg (275-300); CALCIUM 7.8 mg/dL (8.5-10.1); CARBON DIOXIDE 25.8 mmol/L (21.0-32.0); CHLORIDE - SERUM 109 mmol/L (98-107); CREATININE - SERUM 0.7 mg/dL (0.6-1.3); GLUCOSE 97 mg/dL (74-106); POTASSIUM - SERUM 3.8 mmol/L (3.5-5.1); SODIUM 143 mmol/L (136-145); eGFR NON AFRICAN AMERICAN > 90 mL/min (90-120)
[2019-02-08 05:42] LABS: UREA NITROGEN 4 mg/dL (7-18)
--- NOTE | 2019-02-08 05:53 | NUR ---
BOLUSED PATIENT PER ORDER FROM DR. BUCHANAN. PATIENT B/P CAME UP TO 115/75. PAGED DR. BUCHANAN TO INFORM AND ADVISE ON AM LABS.
--- NOTE | 2019-02-08 07:44 | HP ---
PATIENT: JAX MYERS MEDICAL RECORD: [id number] ACCOUNT: [id number] LOCATION:[address] : [birth year] ADMISSION DATE: 02/07/19 PCP: HAZEL RODARTE MD HISTORY AND PHYSICAL EXAMINATION CHIEF COMPLAINT: Abdominal pain and gross bloody diarrhea. HISTORY OF PRESENT ILLNESS: The patient is a 28-year-old 2-2-0-2, female, with no previous history of GI issues. She states 2 days ago, she developed onset of some nausea, abdominal pain and then had nain bloody stools. She said the blood was significant, had some clots. She then vomited a couple of times, approximately 5 she says and had a little bit of streaky blood in her vomitus, that has not recurred. She went to the Emergency Room at [facility] yesterday evening, had normal labs and was sent home for gastroenteritis. She continued to have trouble with abdominal pain, more bloody stools last night and came to my office early this morning. She has a tender abdomen in the left lower quadrant and left upper quadrant, but no rebound. Her labs again remained normal and she is admitted for CT scan to further workup as her insurance company would not allow outpatient CT. She denies fever. History of significant anti-inflammatory use or family history of inflammatory bowel disease. She denies constipation, long-term. PAST MEDICAL HISTORY: Essential hypertension, 2-2-0-2, history of kidney stones and had a pyelonephritis in the past. PAST SURGICAL HISTORY: Had cystoscopy with stent placement for stone removal. ALLERGIES: None mentioned. HOME MEDICATIONS: Avapro 160/12.5 one p.o. every morning and a women's multivitamin 1 daily. FAMILY HISTORY: Father's health is unknown. Mother has history of arthritis and coronary artery disease. One uncle with history of diverticulosis. SOCIAL HISTORY: Nonsmoker, rare alcohol drinker, is with 2 children. 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 REVIEW OF SYSTEMS: CONSTITUTIONAL: No fever, fatigue, or weight change. HEENT: No recent visual change, sinus congestion, or sore throat. RESPIRATORY: No severe cough. CARDIAC: No exertional chest pain, claudication or edema. GASTROINTESTINAL: Nausea, vomiting and nain bloody stools with left upper and lower quadrant abdominal pain for the last 48 hours. No prior history of constipation, diarrhea or gallbladder disease or peptic ulcer disease. ENDOCRINE: Denies polyuria, polydipsia, heat or cold intolerance. NEUROLOGIC: No history of vascular headaches, seizures, memory loss. PSYCHIATRIC: Denies depressed mood. PHYSICAL EXAMINATION: GENERAL: Alert 28-year-old female at this time in mild distress due to pain. VITAL SIGNS: Temperature is 98, pulse 76, blood pressure is 130/66 with a pulse ox of 99%, respirations of 20. GENERAL: Alert and oriented. HISTORY AND PHYSICAL [id number] JAX MYERS Eugene HEALISSON: Eyes are clear. Oropharynx unremarkable. NECK: Supple. CHEST: Clear. BREASTS: Symmetrical. ABDOMEN: Soft, tender in the left upper and left lower quadrant without rebound. Bowel sounds are hyperactive. RECTAL: Deferred. EXTREMITIES: No CC&E. SKIN: No petechiae or icterus. LABORATORY DATA: Urinalysis shows specific gravity 1.0, otherwise negative. White blood count is 7,100, with normal diff, H&H is 14.6 and 43.4 with a platelet count of 282,000. BMP is normal with potassium low at 3.4. CT scan showed simple cyst in the left kidney 8 x 7 mm, simple ovarian cyst on the right 2.4 x 2.3 cm, sigmoid diverticulosis in large and small bowel without signs of diverticulitis. There is focal area of wall thickening within the distal transverse and proximal descending colon with perinephric stranding consistent with focal colitis, and IUD noted. ASSESSMENT: Colitis, etiology unknown. Rectal bleeding, scant hematemesis, hypertension, abdominal pain, and hypokalemia due to gastrointestinal loss. PLAN: The patient will be admitted for IV fluids, potassium replacement, IV Flagyl, and Levaquin. GI consult if indicated. TRANSINT:[id number] Voice Confirmation ID: [id number] DOCUMENT ID: [id number] HAZEL RODARTE MD at 0744 CC: [id number] DICTATION DATE: 02/06/191734 CANDY DECORATOR: 02/06/192219 [place] [address]
--- NOTE | 2019-02-08 07:52 | NUR ---
PT WORRIED ABOUT GETTING DISCHARGED TODAY AND THAT IT WOULD BE TOO SOON. SHE STATES MD SAW HER THIS AM BUT SHE FORGOT TO ASK ABOUT GETTING DIET INCREASED TO [employer] TO SEE IF SHE ABLE TO TOLERATE IT. I VERBALIZED UNDERSTANDING AND STATED TO HER I WOULD CALL AND SPEAK WITH DR. RODARTE.
--- NOTE | 2019-02-08 07:56 | NUR ---
DR. RODARTE PAGEKunal.
--- NOTE | 2019-02-08 07:57 | NUR ---
CALLED STAFF WRITER FOR TRANSPORTATION MAINTENANCE WORKER.
--- NOTE | 2019-02-08 08:02 | NUR ---
DR. BUCHANAN CALLED AND STATED HE DOESN'T ABOUT PT'S DIET AND WHAT TO DO. HE STATES HE WILL TEXT. DR. RODARTE AND HAVE HIM CALL US.
--- NOTE | 2019-02-08 08:20 | NUR ---
SPOKE WITH DR. RODARTE HE STATES TO ORDER A SOFT DIET AND MIMA HOSE. I VERBALIZED UNDERSTANDING.
[2019-02-08 10:11] LABS: HEPATITIS C ANTIBODY <0.1 S/CO RAT (0.0-0.9)
--- NOTE | 2019-02-08 10:20 | NUR ---
PLACED SOUND INSTALLATION WORKER ON PT.
--- NOTE | 2019-02-08 10:37 | NUR ---
PT STATED SHE HAS HAD FOUR DARK DIARRHEA STOOLS THIS AM. SPOKE WITH DR. RODARTE AND STATED TO HIM WHAT PT STATED TO ME AND GAVE HIM EKG RESULTS. HE STATES THE EKG HE IS NOT WORRIED ABOUT AND THAT IT REALLY DIDN'T SHOW ANYTHING AND HE ALSO STATES TO GET OCCULT BLOOD STOOL SAMPLE AND TO GET AND H&H RECHECK AT 1400. HE ALSO STATES HE WILL NOT GIVE PT ANY MEDICATION TO STOP DIARRHEA. HE STATES "IT ALL NEEDS TO COME OUT."
--- NOTE | 2019-02-08 12:34 | NUR ---
PT STATES SHE HAS NOT HAD ANOTHER BM SINCE STOOL COLLECTION WAS ORDERED.
--- NOTE | 2019-02-08 13:08 | NUR ---
STOOL COLLECTED AND TAKEN TO LAB.
--- NOTE | 2019-02-08 13:26 | NUR ---
PT UP TAKING SHOWER NOW BY SLEF. AND MOTHER AT BEDSIDE. COMPLETE LINEN CHANGE DONE.
[2019-02-08 14:18] LABS: HEMATOCRIT 39.1 % (36.0-48.0); HEMOGLOBIN 12.9 g/dL (12-16)
--- NOTE | 2019-02-08 14:30 | NUR ---
MIMA PADILLA PLACED ON PT'S LEGS.
--- NOTE | 2019-02-08 14:32 | NUR ---
KEISHA CARD FROM CAME BY TO SEE PT BUT SHE WAS IN THE SHOWER. PT WANTING TO KNOW IF SHE WILL COME BACK. I STATED TO HER I WILL CALL AND SEE. SPOKE WITH ANALYTICAL TECHNICIAN ON MED 2 AND SHE SPOKE WITH KEISHA CARD WHO IS ROUND UP THERE AND SHE STATES SHE WILL COME SEE PT ONCE SHE IS DONE ROUNDING UPSTAIRS. I VERBALIZED UNDERSTANDING.
[2019-02-08] MEDS ORDERED: FLAGYL500 MG PO (17:15)
[2019-02-08] MEDS ORDERED: LEVOFLOXACIN500 MG PO (17:16)
--- NOTE | 2019-02-08 18:08 | NUR ---
LEFT FA IV DC'D WITH CATH INTACT. TELEMETRY DC'D. DISCHARGE INSTRUCTIONS GIVEN TO PT. PT TO GET WORK EXCUSE FROM DR. RODARTE'S OFFICE. ALSO STATED TO PT TO STOP TAKING HEIDE AND LOMOTIL. PT VERBALIZED UNDERSTANDING AND HAS NO FURTHER QUESTIONS. DISCHARGE PAPERS SIGNED. PT TAKEN OUT BY WC BY THIS NURSE ACCOMPANIED BY SPOUSE AND HER MOTHER AND LEFT IN PERSONAL CAR.
--- NOTE | 2019-02-08 18:54 | MORECARE ---
CASE MANAGEMENT DISCHARGE SUMMARY PATIENT: JAX PAIZ UNIT: [id number] ADM DATE: 02/07/19 AGE: 28 : 88 SEX: F ROOM/BED: D.1203 AUTHOR: VICKI LE PHYSICIAN: REFERRING PHYSICIAN: HAZEL BASURTO MD DATE OF SERVICE: 02/08/19 Discharge Plan Patient Name: JAX PAIZ Facility: [facility]:[place] : 1990 Planned Disposition: Home Anticipated Discharge Date: 02/08/19 Discharge Date: 02/08/2019 Expected LOS: 2 Initial Reviewer: [email or web address] Initial Review Date: 02/06/2019 Generated: 02/08/19 7:54 pm DCP- Discharge Planning Updated by [email or web address]: Salome Wood on 02/07/19 11:[address] DC PLAN: Return home independently with her . ANTICIPATED DC NEEDS: Denied known dc needs. CM met with patient to complete initial dc planning assessment. CM educated patient on the CM role and verbal consent given by patient to complete assessment. CM verified patient's address, phone number, and emergency contact phone numbers. Patient lives at home with her and reports she is independent with her ADL's. At discharge patient plans to return home and feels this is a safe discharge. CM discussed availability of home health, rehab services, and medical equipment. Patient denied known discharge needs at this time. Patient reports her will transport him/her home at time of discharge. CM will continue to follow and will assist as needed with dc plans/needs. Salome Wood RN, [facility] DCPIA - Discharge Planning Initial Assessment Updated by [email or web address]: Salome Wood on 02/07/19 12:38 pm * Is the patient Alert and Oriented? Yes * PCP Dr. Basurto * Pharmacy [facility] * Preadmission Environment Home with Family * ADLs Independent * Equipment None * List name and contact numbers for known caregivers / representatives who currently or will assist patient after discharge: Nicholas Paiz - spouse - [phone] * Verbal permission to speak to the caregivers and representatives has been obtained from the patient. Yes * Community resources currently utilized None * Additional services required to return to the preadmission environment? No * Can the patient safely return to the preadmission environment? Yes * Has this patient been hospitalized within the prior 30 days at any hospital? No Last DP export: 02/07/19 12:42 p Patient Name: JAX PAIZ Page [id number] at 1854 All edits/amendments must be made on the electronic document DICTATION DATE: 02/08/191852 ENVIRONMENTAL LAWYER: ESTER 02/08/191852 RPT#: [id number] DC DATE:02/08/19 STATUS: DIS IN [facility] [address] [place] [address] END OF REPORT
--- NOTE | 2019-04-10 07:29 | DS ---
PATIENT:JAX MYERS :86 MEDICAL RECORD: [id number] DISCHARGE SUMMARY ADMISSION DATE: 02/07/19 DISCHARGE DATE: 02/08/19 DISCHARGE DIAGNOSES: Colitis of transverse and ascending colon, melena, nain rectal bleeding, abdominal pain, hematochezia, sigmoid diverticulosis without diverticulitis, hepatic steatosis, simple left renal cyst, simple right ovarian cyst. PROCEDURES PERFORMED: CT of the abdomen, IV antibiotics. HOSPITAL COURSE: A 28-year-old 2-2-0-2 female admitted with bloody stools from the office having abdominal pain as well. No fever. Initial labs were unremarkable. CT scan of the abdomen was performed showing colitis and stranding in the left transverse and descending colon proximally. Other findings as above. Dr. Bentley from GI was consulted. He agreed with current medical management. Her H&H remained stable. She was discharged in 48 hours to have followup outpatient colonoscopy in 1 month. Her stools did gradually improve and rectal bleeding ceased. She was tolerating diet at discharge. DISCHARGE MEDICATIONS: Flagyl 500 mg p.o. t.i.d. for 12 days, Levaquin 500 mg daily for 12 days, Zofran ODT 4 mg q.4 hours p.r.n. nausea, Brigid 0.35 mg tablet at bedtime. She will hold Avapro 150 mg daily currently due to hypotension. ACTIVITY: Progress as tolerated. DIET: Soft. FOLLOWUP: Return to clinic to see me in 1 week with CBC and BMP, Dr. Bentley per his order. TRANSINT:[id number] Voice Confirmation ID: [id number] DOCUMENT ID: [id number] HAZEL RODARTE MD at 0729 CC: [id number] DICTATION DATE: 04/09/19 0938 BUILDING AND CONSTRUCTION MANAGER: 04/10/19 0025 DIS IN 02/08/19 [id number] [place] [address]
== END 2019-02-08 18:11 | disposition home or self-care (01) | DRG 392 ==
LOC: D.SDCHOLD 11:56 → D.M3 11:56 → OBSVTIME 18:12 → D.M3 02-07 16:49
PROVIDERS: ADMIT Family Medicine; ATTEND Family Medicine
DX: A09 Infectious gastroenteritis and colitis, unspecified (principal); K92.1 Melena; I10 Essential (primary) hypertension; E87.6 Hypokalemia; I95.9 Hypotension, unspecified; R42 Dizziness and giddiness

== ENCOUNTER → 2020-02-23 11:06 | Outpatient (CLI) | payer OTHER ==
[2019-02-07 12:01] VITALS: BMI 27.3
[~2020-02-23 11:06] MED LIST changes: +AVAPRO150 MG PO; +ERRIN0.35 MG PO; +FLAGYL500 MG PO; +LEVOFLOXACIN500 MG PO
== END | disposition home or self-care (01) ==
LOC: D.CT 11:06
PROVIDERS: ATTEND Family Medicine
DX: D02.21 Carcinoma in situ of right bronchus and lung (principal)